=== PATIENT | female | born 1945 | race Caucasian/White ===

== ENCOUNTER 2024-06-14 18:10 | Emergency (ER) | payer MEDICARE ==
[2024-06-14] MEDS ORDERED: HYDROmorphone 2 MG/ML Syringe IVPUSH PRN (18:55)
[2024-06-14] MEDS: Acetaminophen 500 MG Tab PO ONE (18:56)
[2024-06-14] MEDS: Acetaminophen 500 MG Tab ONE (19:07)
[2024-06-14 19:22] LABS: BASOPHILS ABSOLUTE AUTO 0.03 K/uL (0.02-0.10); BASOPHILS PERCENT AUTO 0.2 % (0.0-0.5); EOSINOPHILS ABSOLUTE AUTO 0.07 K/uL (0.04-0.40); EOSINOPHILS PERCENT AUTO 0.5 % (1.0-5.0); HEMATOCRIT 39.6 % (37.0-47.0); HEMOGLOBIN 13.2 g/dL (11.5-16.5); LYMPHOCYTES ABSOLUTE AUTO 1.29 K/uL (1.50-4.00); LYMPHOCYTES PERCENT AUTO 9.6 % (20.0-40.0); MEAN CORPUSCULAR HEMOGLOBIN 29.7 pg (27.0-32.0); MEAN CORPUSCULAR HGB CONC 33.3 g/dL (31.0-35.0); MEAN CORPUSCULAR VOLUME 89 fL (76-96); MEAN PLATELET VOLUME 10.1 fL (6.0-10.0); MONOCYTES ABSOLUTE AUTO 1.11 K/uL (0.20-0.80); MONOCYTES PERCENT AUTO 8.2 % (3.0-10.0); NEUTROPHILS ABSOLUTE AUTO 10.97 K/uL (2.00-7.50); NEUTROPHILS PERCENT AUTO 81.5 % (45.0-70.0); PLATELET COUNT,PLT 295 K/uL (150-500); RED BLOOD CELL COUNT 4.44 M/uL (3.80-5.80); RED CELL DISTRIBUTION WIDTH 13.7 % (11.0-16.0); WHITE BLOOD CELL COUNT,WBC 13.5 K/uL (4.0-11.0)
[2024-06-14 19:32] LABS: APPEARANCE,URINE CLOUDY (CLEAR); BILIRUBIN,URINE NEGATIVE (NEGATIVE); COLOR,URINE YELLOW; GLUCOSE,URINE NEGATIVE (NEGATIVE); KETONES,URINE NEGATIVE (NEGATIVE); LEUKOCYTE ESTERASE,URINE TRACE (NEGATIVE); NITRITE,URINE NEGATIVE (NEGATIVE); OCCULT BLOOD,URINE NEGATIVE (NEGATIVE); PH,URINE 5.5 (5.0-8.0); PROTEIN,URINE NEGATIVE (NEGATIVE); UROBILINOGEN,URINE 0.2 E.U./dL (0.2-1.0)
[2024-06-14 19:34] LABS: RBC,URINE 0-5 /HPF; SQUAMOUS EPITHELIAL CELLS,UR OCCASIONAL /HPF
[2024-06-14 19:41] LABS: A/G RATIO 0.9 (0.8-2.0); ALBUMIN 3.4 g/dL (3.4-5.0); ANION GAP 13.3 mmol/L (5.0-15.0); BILIRUBIN TOTAL 0.5 mg/dL (0.0-1.0); BUN/CREATININE RATIO 15.1 (6-25); CALCIUM 8.6 mg/dL (8.5-10.1); CARBON DIOXIDE,CO2 28.8 mmol/L (21.0-32.0); CREATININE 0.93 mg/dL (0.55-1.02); EST CRCL DRUG DOSING (CG) 37.62 mL/min; POTASSIUM,K 4.1 mmol/L (3.5-5.1)
[2024-06-14] MEDS: Iopamidol 612 MG/ML 100 ML Bottle IV SCH (19:48)
[2024-06-14] MEDS: Sodium Chloride 0.9% 50 ML SDV FLUSH ONE (19:48)
[2024-06-14 21:05] VITALS: BP 121/62; PULSE 74
== END 2024-06-14 21:25 | disposition home or self-care (01) ==
LOC: LB.ED 18:10
DX: K57.32 Diverticulitis of large intestine without perforation or abscess without bleeding (principal); K21.9 Gastro-esophageal reflux disease without esophagitis; Z91.048 Other nonmedicinal substance allergy status; Z88.8 Allergy status to other drugs, medicaments and biological substances; Z88.0 Allergy status to penicillin; Z79.899 Other long term (current) drug therapy
CPT/HCPCS: 36415; 74177; 80053; 81001; 83605; 85025; 86140; 87086; 99284; A9270-GY; J3490; Q9967

== ENCOUNTER 2025-02-03 00:58 | Emergency (ER) | payer MEDICARE ==
[2025-02-03] MEDS ORDERED: Sodium Chloride 0.9% 10 ML Syringe FLUSH PRN (01:47)
[2025-02-03] MEDS: Aspirin 81 MG Tab.Chew PO ONE (01:56)
[2025-02-03] MEDS: Sodium Chloride 0.9% 1,000 ML IV SCH (01:59)
[2025-02-03] MEDS: diphenhydrAMINE 50 MG/ML SDV IVPUSH ONE (02:02)
[2025-02-03 02:09] LABS: HEMATOCRIT 39.3 % (37.0-47.0); HEMOGLOBIN 12.9 g/dL (11.5-16.5); MEAN CORPUSCULAR HEMOGLOBIN 29.1 pg (27.0-32.0); MEAN CORPUSCULAR HGB CONC 32.8 g/dL (31.0-35.0); MEAN PLATELET VOLUME 10.4 fL (6.0-10.0); RED BLOOD CELL COUNT 4.44 M/uL (3.80-5.80); WHITE BLOOD CELL COUNT,WBC 6.8 K/uL (4.0-11.0)
[2025-02-03 02:24] LABS: ANION GAP 11.6 mmol/L (5.0-15.0); BUN/CREATININE RATIO 18.6 (6-25); CALCIUM 9.2 mg/dL (8.5-10.1); CARBON DIOXIDE,CO2 28.1 mmol/L (21.0-32.0); CREATININE 1.02 mg/dL (0.55-1.02); EST CRCL DRUG DOSING (CG) 26.13 mL/min; POTASSIUM,K 4.7 mmol/L (3.5-5.1); TROPONIN I HIGH SENSITIVITY 6.8 pg/ml (<=60.4)
[2025-02-03] MEDS: diazePAM 10 MG Tab PO ONE (05:05)
[2025-02-03 09:11] VITALS: BP 156/89; PULSE 53
== END 2025-02-03 09:20 | disposition home or self-care (01) ==
LOC: LB.ED 00:58
DX: I10 Essential (primary) hypertension (principal); Z88.0 Allergy status to penicillin; Z91.048 Other nonmedicinal substance allergy status; Z79.82 Long term (current) use of aspirin; Z79.899 Other long term (current) drug therapy; Z90.49 Acquired absence of other specified parts of digestive tract
CPT/HCPCS: 36415; 70450; 80048; 82947; 83735; 84484; 85027; 93005; 96361; 96374; 99284; A9270; J1200; J7030